=== PATIENT | female | born 1975 | race Two or more races ===

== ENCOUNTER 2022-07-16 05:15 | Day surgery (SDC) | payer OTHER ==
[~2022-07-16] VITALS: Ht 157.5 cm; Wt 61.2 kg
== END 2022-07-16 13:50 | disposition home or self-care (01) ==
LOC: CIR.AMB 05:15
PROVIDERS: ATTEND Obstetrics & Gynecology Maternal & Fetal Medicine
DX: N84.0 Polyp of corpus uteri (principal); Z20.822 Contact with and (suspected) exposure to COVID-19; Z87.891 Personal history of nicotine dependence